=== PATIENT | male | born 1980 | race Caucasian/White ===

== ENCOUNTER 2018-02-08 20:44 | Emergency (ER) | payer OTHER ==
--- NOTE | 2018-02-08 21:03 | PDOC ---
Rapid Medical Evaluation Time Seen by Provider: 02/08/18 21:02 Medical Evaluation: 02/08/18 21:02 I have performed a brief in-person evaluation of this patient. The patient presents with a chief complaint of: burning with urination after unprotected intercourse 2 weeks ago. Scrotal pain Pertinent physical findings: NAD even and unlabored breathing non tender abdomen I have ordered the following: std screening The patient will proceed to the ED for further evaluation.
[2018-02-08 21:08] VITALS: BP 126/85; PULSE 73; TEMP 98.1; BMI 34.0
[2018-02-08 21:38] LABS: URINE APPEARANCE CLEAR; URINE BILIRUBIN NEGATIVE (<2.0 mg/dL); URINE COLOR LTYELLOW; URINE GLUCOSE (UA) NEGATIVE (NEGATIVE); URINE KETONE NEGATIVE (NEGATIVE); URINE LEUK ESTERASE NEGATIVE (NEGATIVE); URINE NITRITE NEGATIVE (NEGATIVE); URINE PROTEIN NEGATIVE (NEGATIVE)
[2018-02-08] MEDS ORDERED: AZITHROMYCIN 500 MG TABLET PO ONE (21:40)
[2018-02-08] MEDS ORDERED: LIDOCAINE HCL 1%, 10 MG/ML (20ML VIAL) ONE (21:51)
[2018-02-08] MEDS ORDERED: AZITHROMYCIN 500 MG TABLET ONE (21:51)
--- NOTE | 2018-02-08 22:21 | PDOC ---
History of Present Illness - General Chief Complaint: Urinary Problem Stated Complaint: PAIN IN GROIN Time Seen by Provider: 02/08/18 21:02 History Source: Patient Exam Limitations: No Limitations - History of Present Illness Travel History: No Initial Comments: 02/08/18 22:16 37-year-old male presents emergency Department with dysuria and penile discharge status post intercourse with one woman. Patient states she was wearing a condom at the time but the condom broke in the middle of vaginal intercourse. Patient stated he continued to perform intercourse after the condom broke but then stopped. Patient states symptoms started approximately 3 days after the incident with the condom breaking. He denies any fevers, chills, testicular pain, nausea, vomiting. Past History - Past Medical History Allergies/Adverse Reactions: Allergies Allergy/AdvReac Type Severity Reaction Status Date / Time No Known Allergies Allergy Verified 02/08/18 21:05 Home Medications: Ambulatory Orders NK [No Known Home Medication] 02/08/18 CVA: No COPD: No DVT: No Dementia: No - Surgical History Gastric Stapling: No GI Surgery: No Lung Surgery: No Neurologic Surgery: No - Suicide/Smoking/Psychosocial Hx Smoking History: Never smoked Have you smoked in the past 12 months: No Information on smoking cessation initiated: No Hx Alcohol Use: No Drug/Substance Use Hx: No Substance Use Type: None Review of Systems - Review of Systems Able to Perform ROS?: Yes Is the patient limited [place] proficient: No Constitutional: No: Symptoms Reported HEENTM: No: Symptoms Reported Respiratory: No: Symptoms reported Cardiac (ROS): No: Symptoms Reported ABD/GI: No: Symptoms Reported : Yes: See HPI Musculoskeletal: No: Symptoms Reported Integumentary: No: Symptoms Reported Neurological: No: Symptoms reported Endocrine: No: Symptoms Reported Hematologic/Lymphatic: No: Symptoms Reported *Physical Exam - Vital Signs Last Vital Signs Temp Pulse Resp BP Pulse Ox 98.1 F 73 20 126/85 98 02/08/18 21:06 02/08/18 21:06 02/08/18 21:06 02/08/18 21:06 02/08/18 21:06 - Physical Exam General Appearance: Yes: Appropriately Dressed. No: Apparent Distress HEENT: positive: Normal ENT Inspection Male Genitalia: positive: normal genitalia, discharge (milky white). negative: testicular tenderness, testicular mass, epididymus tender, CVAT Musculoskeletal: positive: Normal Inspection. negative: CVA Tenderness ED Treatment Course - ADDITIONAL ORDERS Additional order review: Laboratory Results 02/08/18 21:30 Urine Color Ltyellow Urine Appearance Clear Urine pH 6.0 Ur Specific [place] 1.030 Urine Protein Negative Urine Glucose (UA) Negative Urine Ketones Negative Urine Blood 1+ H Urine Nitrite Negative Urine Bilirubin Negative Urine Urobilinogen 2.0 Ur Leukocyte Esterase Negative Urine WBC (Auto) 4 Urine RBC (Auto) 3 - Medications Given in the ED: ED Medications Discontinued Medications Generic Name Dose Route Start Last Admin Trade Name Dino PRN Reason Stop Dose Admin Azithromycin 1,000 mg 02/08/18 21:40 02/08/18 21:56 Azithromycin PO 02/08/18 21:41 1,000 mg ONCE ONE Administration Ceftriaxone Sodium 250 mg 02/08/18 21:40 02/08/18 21:56 Rocephin - IM 02/08/18 21:41 250 mg ONCE ONE Administration Medical Decision Making - Medical Decision Making 02/08/18 22:18 A/P: 37-year-old male with penile discharge status post unprotected sex Milky white discharge expressed from circumcised penis No testicular tenderness No epididymal tenderness Presumed infection of gonorrhea or chlamydia UA, GC, urine culture Ceftriaxone 250 mg IM and azithromycin 1 g orally Discharge home 02/08/18 22:21 UA with 1+ blood. WBC-4 RBC-3 *DC/Admit/Observation/Transfer Diagnosis at time of Disposition: Possible exposure to STD - Discharge Dispostion Disposition: HOME Condition at time of disposition: Stable Decision to Admit order: No - Referrals - Patient Instructions Additional Instructions: You been treated today with azithromycin 1 g by mouth for treatment of presumed chlamydia You have been treated with Rocephin 250 mg injection for treatment of presumned gonorrhea The syphilis test, gonorrhea and chlamydia testing will not be completed for the next few days. You may call and leave message for return phone call with lab results. Be sure to be clear with your name, birthdate, and phone number Always use condoms with the partners Followup with [facility] or PMD in one week for reevaluation and retesting. - Post Discharge Activity
== END 2018-02-08 22:25 | disposition home or self-care (01) ==
LOC: JERFT 20:44
DX: Z20.2 Contact with and (suspected) exposure to infections with a predominantly sexual mode of transmission (principal)
CPT/HCPCS: 36415; 81003; 81015; 87086; 87491; 87591; 96372; 99281-25